=== PATIENT | male | born 1940 | race Asian ===

== ENCOUNTER 2022-07-15 16:18 | Emergency (ER) | payer OTHER ==
[~2022-07-15] VITALS: Ht 167.6 cm; Wt 84.8 kg
[2022-07-15 17:37] LABS: POTASSIUM 3.9 mmol/L (3.6-5.2)
[2022-07-15 17:40] LABS: PLATELET COUNT 174 K/uL (142-355)
[2022-07-15 17:44] LABS: PARTIAL THROMBOPLASTIN TIME 23.5 SECONDS (24.5-33.6)
[2022-07-15 20:47] VITALS: BP 107/60; TEMP 98.7
== END 2022-07-15 20:47 | disposition home or self-care (01) ==
LOC: ED 16:18
PROVIDERS: Family Medicine
DX: M54.2 Cervicalgia (principal); R55 Syncope and collapse; M13.88 Other specified arthritis, other site
CPT/HCPCS: 36415; 80053; 80307; 81002; 82550; 84484; 85027; 85610; 85730; 93005; 96374; 96375; 99284; J1885; J2405